=== PATIENT | male | born 1980 | race Caucasian/White ===

== ENCOUNTER 2019-10-30 17:17 | Emergency (ER) | payer SELFPAY ==
[2019-10-30] MEDS ORDERED: FLUORESCEIN SODIUM 1 MG/WRAP ONE (20:08)
[2019-10-30] MEDS ORDERED: TETANUS & DIPHTHERIA TOX,ADULT 0.5 ML VIAL ONE (20:23)
[2019-10-30] MEDS ORDERED: MOXIFLOXACIN HCL 10 DROPS/ML **OR USE OPTH ONE (20:27)
--- NOTE | 2019-10-30 20:31 | EDPHYS ---
Physician Documentation [facility] Name: Saeid Lang Age: 39 yrs Sex: Male : 1980 Arrival Date: 10/30/2019 Time: 17:20 Bed 20 Private MD: ED Physician Husam Ramirez HPI: 10/29 20:12 This 39 yrs old Male presents to ER via Ambulatory with complaints of Eye wilbur Problem. 20:12 The patient is experiencing pain, redness, The patient sustained Unknown. to the right wilbur eye. Onset: The symptoms/episode began/occurred today. Duration: the symptoms are continuous. Aggravated by blinking, closing eye, Alleviated by nothing. Associated signs and symptoms: Pertinent positives: None. Pertinent negatives: None. Patient wears soft contacts. Severity of symptoms: At their worst the symptoms were moderate in the emergency department the symptoms are unchanged. The patient has not experienced similar symptoms in the past. Historical: - Allergies: 18:08 PENICILLINS; ss - Home Meds: 18:08 None [Active]; ss - PMHx: 18:08 None; ss - PSHx: 18:08 Hernia repair; ss - Immunization history:: Adult Immunizations up to date. - Social history:: Smoking status: Patient denies any tobacco usage or history of. - Family history:: not pertinent. ROS: 20:12 Constitutional: Negative for fever, chills, and weight loss, ENT: Negative for injury, wilbur pain, and discharge, Neck: Negative for injury, pain, and swelling, Cardiovascular: Negative for chest pain, palpitations, and edema, Respiratory: Negative for shortness of breath, cough, wheezing, and pleuritic chest pain, Abdomen/GI: Negative for abdominal pain, nausea, vomiting, diarrhea, and constipation, Back: Negative for injury and pain, : Negative for injury, bleeding, discharge, and swelling, MS/Extremity: Negative for injury and deformity, Skin: Negative for injury, rash, and discoloration, Neuro: Negative for headache, weakness, numbness, tingling, and seizure, Psych: Negative for depression, anxiety, suicide ideation, homicidal ideation, and hallucinations, Allergy/Immunology: Negative for hives, rash, and allergies, Endocrine: Negative for neck swelling, polydipsia, polyuria, polyphagia, and marked weight changes, Hematologic/Lymphatic: Negative for swollen nodes, abnormal bleeding, and unusual bruising. 20:12 Eyes: Positive for discharge, matting, pain, redness, of the iris of right eye. Exam: 20:12 Constitutional: This is a well developed, well nourished patient who is awake, alert, wilbur and in no acute distress. Head/Face: Normocephalic, atraumatic. ENT: Nares patent. No nasal discharge, no septal abnormalities noted. Tympanic membranes are normal and external auditory canals are clear. Oropharynx with no redness, swelling, or masses, exudates, or evidence of obstruction, uvula midline. Mucous membranes moist. Neck: Trachea midline, no thyromegaly or masses palpated, and no cervical lymphadenopathy. Supple, full range of motion without nuchal rigidity, or vertebral point tenderness. No Meningismus. Chest/axilla: Normal chest wall appearance and motion. Nontender with no deformity. No lesions are appreciated. Cardiovascular: Regular rate and rhythm with a normal S1 and S2. No gallops, murmurs, or rubs. Normal PMI, no JVD. No pulse deficits. Respiratory: Lungs have equal breath sounds bilaterally, clear to auscultation and percussion. No rales, rhonchi or wheezes noted. No increased work of breathing, no retractions or nasal flaring. Abdomen/GI: Soft, non-tender, with normal bowel sounds. No distension or tympany. No guarding or rebound. No evidence of tenderness throughout. Back: No spinal tenderness. No costovertebral tenderness. Full range of motion. Male : Normal genitalia with no discharge or lesions. Skin: Warm, dry with normal turgor. Normal color with no rashes, no lesions, and no evidence of cellulitis. 20:12 Eyes: Periorbital structures: appear normal, no acute changes, Pupils: no acute changes, equal, round, and reactive to light and accomodation, Extraocular movements: no acute changes, Conjunctiva: injected, Corneas: abrasion, a fluorescein strip employed to appreciate the findings, Sclera: no appreciated abnormality, Anterior chamber: normal, no acute changes, Lids and lashes: no acute changes, no evidence of trauma, drainage, from the right eye, edema, of the right eye, funduscopic exam reveals no obvious abnormalities, Nystagmus: no acute changes. Vital Signs: 18:04 BP 123 / 63; Pulse 85; Resp 16; Temp 98.8(TE); Pulse Ox 97% on R/A; Weight 113.4 kg; ss Height 5 ft. 11 in. (180.34 cm); Pain 3/10; 20:00 BP 120 / 71; Pulse 88; Resp 18; Pulse Ox 99% on R/A; wh 18:04 Body Mass Index 34.87 (113.40 kg, 180.34 cm) MDM: 19:02 Patient medically screened. [facility] 20:16 Data reviewed: vital signs, nurses notes. [facility] Administered Medications: 20:26 Drug: Vigamox 0.5 % 2 drops {Note: Per MD instruction, not given now. Pt to see Dr tyler Jacobo in his office for culture first.} Route: Ophthalmic; Site: right eye; 20:27 Drug: Tetanus-Diphtheria Toxoid Adult 0.5 ml {Surgery Aid: [employer]. Exp: 07/20/2021. Lot #: [id number]. } Route: IM; Site: right deltoid; 20:49 Follow up: Response: No adverse reaction 20:32 Drug: Rothschild 10 mg-325 mg 1 tabs Route: PO; 20:48 Follow up: Response: No adverse reaction; Pain is decreased; RASS: Alert and Calm (0) Disposition: 10/30/19 20:31 Discharged to Home. Impression: Corneal ulcer - x 4. - Condition is Stable. - Discharge Instructions: Corneal Ulcer. - Prescriptions for Tylenol- Codeine #3 300-30 mg Oral Tablet - take 2 tablets by ORAL route every 6 hours As needed; 20 tablet. Vigamox 0.5 % Ophthalmic Drops - instill 1 drop by OPHTHALMIC route every 4 hours for 7 days; 5 milliliter. - Medication Reconciliation Form, Thank You Letter, Antibiotic Education, Prescription Opioid Use form. - Follow up: Naresh Jacobo; When: Upon discharge from the Emergency Department; Reason: Further diagnostic work-up, Recheck today's complaints. - Problem is new. - Symptoms have improved. Signatures: Husam Ramirez MD MD cha Smirch, Shelby, RN RN Emma Whitney Corrections: (The following items were deleted from the chart) 20:49 20:31 10/30/2019 20:31 Discharged to Home. Impression: Corneal ulcer - x 4. Condition wh is Stable. Discharge Instructions: Corneal Ulcer. Prescriptions for Tylenol-Codeine #3 300-30 mg Oral Tablet - take 2 tablets by ORAL route every 6 hours As needed; 20 tablet, Vigamox 0.5 % Ophthalmic Drops - instill 1 drop by OPHTHALMIC route every 4 hours for 7 days; 5 milliliter. and Forms are Medication Reconciliation Form, Thank You Letter, Antibiotic Education, Prescription Opioid Use. Follow up: Naresh Jacobo; When: Upon discharge from the Emergency Department; Reason: Further diagnostic work-up, Recheck today's complaints. Problem is new. Symptoms have improved. wilbur
--- NOTE | 2019-10-30 20:31 | ER ---
Nurse's Notes [facility] Name: Saeid Lang Age: 39 yrs Sex: Male : 1980 Arrival Date: 10/30/2019 Time: 17:20 Bed 20 [facility] MD: Diagnosis: Corneal ulcer-x 4 Presentation: 10/29 18:04 Chief complaint: Patient states: Sensation as if something is in R eye since this ss morning. Coronavirus screen: The patient has NOT traveled to a country currently being monitored by the [facility] within the last 14 days. Proceed with normal triage procedures. Ebola Screen: Patient denies exposure to infectious person. Patient denies travel to an Ebola-affected area in the 21 days before illness onset. Initial Sepsis Screen: Does the patient meet any 2 criteria? No. Patient's initial sepsis screen is negative. Does the patient have a suspected source of infection? No. Patient's initial sepsis screen is negative. Risk Assessment: Do you want to hurt yourself or someone else? Patient reports no desire to harm self or others. 18:04 Method Of Arrival: Ambulatory ss 18:04 Acuity: SHYAM 2 19:30 Onset of symptoms was October 30, 2019. wh Historical: - Allergies: 18:08 PENICILLINS; ss - Home Meds: 18:08 None [Active]; ss - PMHx: 18:08 None; ss - PSHx: 18:08 Hernia repair; ss - Immunization history:: Adult Immunizations up to date. - Social history:: Smoking status: Patient denies any tobacco usage or history of. - Family history:: not pertinent. Screenin:30 Abuse screen: Denies threats or abuse. Denies injuries from another. Nutritional wh screening: No deficits noted. Tuberculosis screening: No symptoms or risk factors identified. Fall Risk None identified. Assessment: 19:30 General: Appears in no apparent distress. Behavior is calm, cooperative, appropriate wh for age. Pain: Complains of pain in iris of right eye. Neuro: Level of Consciousness is awake, alert, obeys commands, Oriented to person, place, time, situation, Appropriate for age. Cardiovascular: Capillary refill < 3 seconds. Respiratory: Airway is patent Respiratory effort is even, unlabored, Respiratory pattern is regular, symmetrical. GI: Abdomen is flat, non-distended. : No signs and/or symptoms were reported regarding the genitourinary system. EENT: Eyes are tearing on outer aspect of conjuctiva of right eye, iris of right eye and inner aspect of conjuctiva of right eye with exudate noted from outer aspect of conjuctiva of right eye, iris of right eye and inner aspect of conjuctiva of right eye Reports blurred vision. Derm: Skin is intact, is healthy with good turgor, Skin is pink, warm \T\ dry. normal. Musculoskeletal: Circulation, motion, and sensation intact. 20:30 Reassessment: Patient appears in no apparent distress at this time. No changes from previously documented assessment. Patient and/or family updated on plan of care and expected duration. Pain level reassessed. Patient is alert, oriented x 3, equal unlabored respirations, skin warm/dry/pink. Vital Signs: 18:04 BP 123 / 63; Pulse 85; Resp 16; Temp 98.8(TE); Pulse Ox 97% on R/A; Weight 113.4 kg; Height 5 ft. 11 in. (180.34 cm); Pain 3/10; 20:00 BP 120 / 71; Pulse 88; Resp 18; Pulse Ox 99% on R/A; 18:04 Body Mass Index 34.87 (113.40 kg, 180.34 cm) ED Course: 17:20 Patient arrived in ED. ag5 18:08 Triage completed. 18:08 Arm band placed on right wrist. 19:02 Husam Ramirez MD is Attending Physician. [facility] 19:05 Emma Whitney is Primary Nurse. 19:30 Patient has correct armband on for positive identification. Bed in low position. Call light in reach. Side rails up X 1. Pulse ox on. NIBP on. 20:15 Assist provider with eye exam of right eye. using fluorescein stain, Performed by Husam Ramirez MD Patient tolerated well. 20:31 Naresh Jacobo MD is Referral Physician. [facility] 20:47 Patient did not have IV access during this emergency room visit. Administered Medications: 20:26 Drug: Vigamox 0.5 % 2 drops {Note: Per MD instruction, not given now. Pt to see Dr tyler Jacobo in his office for culture first.} Route: Ophthalmic; Site: right eye; 20:27 Drug: Tetanus-Diphtheria Toxoid Adult 0.5 ml {[employer]: [employer]. Exp: 07/20/2021. Lot #: [id number]. } Route: IM; Site: right deltoid; 20:49 Follow up: Response: No adverse reaction 20:32 Drug: Baker 10 mg-325 mg 1 tabs Route: PO; 20:48 Follow up: Response: No adverse reaction; Pain is decreased; RASS: Alert and Calm (0) Outcome: 20:31 Discharge ordered by . wilbur 20:48 Discharged to home ambulatory, with family. 20:48 Condition: stable 20:48 Discharge instructions given to patient, family, Instructed on discharge instructions, follow up and referral plans. no drinking with medication, no driving heavy equipment, medication usage, POC Demonstrated understanding of instructions, follow-up care, medications, POC Prescriptions given X 2. 20:49 Patient left the ED. Signatures: Husam Ramirez MD MD cha Smirch, Shelby, RN RN Emma Bryant Domi Villanueva ag5 Corrections: (The following items were deleted from the chart) 20:48 20:47 No provider procedures requiring assistance completed. [facility]
[2019-10-30] MEDS ORDERED: HYDROCODONE/APAP 10/325 TAB ONE (20:37)
== END 2019-10-30 20:49 | disposition home or self-care (01) ==
LOC: ER 17:17
DX: H16.001 Unspecified corneal ulcer, right eye (principal); Z88.0 Allergy status to penicillin
CPT/HCPCS: 90471; 90714; 99284